=== PATIENT | female | born 1965 | race Caucasian/White ===

== ENCOUNTER 2022-04-04 16:26 | Emergency (ER) | payer OTHER ==
[~2022-04-04] VITALS: Ht 162.6 cm; Wt 68.0 kg
[2022-04-04 16:35] VITALS: BP_SYST 132
--- NOTE | 2022-04-04 16:35 | NUR ---
Patient triaged on [facility]. VSS and patient appears in no acute distress at this time. Accompanied by EMT'S, awaiting available bed, and MD notified of need for MSE.
[2022-04-04] MEDS ORDERED: IBUPROFEN 600 MG TABLET PO ONE (17:15)
[2022-04-04] MEDS ORDERED: ACETAMINOPHEN 500 MG TABLET PO ONE (17:15)
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
--- NOTE | 2022-04-04 18:20 | NUR ---
MD DR YUEN AT BEDSIDE
[2022-04-04 22:30] VITALS: BP_SYST 145
--- NOTE | 2022-04-04 22:50 | NUR ---
Patient given written and verbal discharge instructions and verbalizes understanding.Pt returning to [place] with sitter and 51/50 original hold, ER MD discussed with patient the results and treatment provided. Patient in stable condition. ID arm band removed. No Rx given. Patient educated on pain management and to follow up with PMD. Pain Scale 2/10 Opportunity for questions provided and answered. Medication side effect fact sheet provided.
== END 2022-04-04 22:30 ==
LOC: SED 16:26
DX: S62.636A Displaced fracture of distal phalanx of right little finger, initial encounter for closed fracture (principal); E11.9 Type 2 diabetes mellitus without complications; I10 Essential (primary) hypertension; Z79.899 Other long term (current) drug therapy; Y04.0XXA Assault by unarmed brawl or fight, initial encounter; Y93.89 Activity, other specified; Y92.89 Other specified places as the place of occurrence of the external cause; Y99.8 Other external cause status
CPT/HCPCS: 99283